=== PATIENT | male | born 1940 | race Caucasian/White ===

== ENCOUNTER 2020-05-26 22:19 | Emergency (ER) | payer MEDICARE, BC ==
[2020-05-26] MEDS ORDERED: Acetaminophen/oxyCODONE 325-5 MG Tab PO ONE (22:20)
[2020-05-26] MEDS ORDERED: Acetaminophen/oxyCODONE 325-5 MG Tab PO STA ×2 (22:26→23:01)
--- NOTE | 2020-05-26 22:36 | EDM.PDOC ---
ED HPI GENERAL MEDICAL PROBLEM - General Chief Complaint: Abdominal Pain Stated Complaint: PAIN Time Seen by Provider: 05/26/20 22:29 Source of Information: Reports: Patient, Old Records, Provider, RN History Limitations: Reports: No Limitations - History of Present Illness INITIAL COMMENTS - FREE TEXT/NARRATIVE: 79 yo male was recently released from a [facility] after having a biopsy of a pancreatic mass. He got oxycodone while in the hospital and had good relief. At the time of discharge he didn't have pain so he was not sent home with anything for pain. He called his primary this evening regarding his pain and was directed to come to the ER as there were no pharmacies open at this hour. Onset: Today, Gradual Onset Date: 05/26/20 Duration: Hour(s):, Constant Location: Reports: Abdomen Quality: Reports: Ache Severity: Moderate Improves with: Reports: Medication Worsens with: Reports: Other (meds wearing off) Context: Reports: Other (See HPI) Associated Symptoms: Reports: No Other Symptoms. Denies: Fever/Chills, Nausea/Vomiting Treatments PATIENT SAFETY SITTER: Reports: Other (see below) (none) abdominal Pain Score (Numeric/FACES): 8 - Related Data Allergies Allergy/AdvReac Type Severity Reaction Status Date / Time tramadol AdvReac Mild shakes Verified 05/26/20 22:32 ED ROS GENERAL - Review of Systems Review Of Systems: See Below Constitutional: Reports: No Symptoms HEENT: Reports: No Symptoms Respiratory: Reports: No Symptoms Cardiovascular: Reports: No Symptoms GI/Abdominal: Reports: Abdominal Pain. Denies: Black Stool, Bloody Stool, Constipation, Diarrhea, Distension, Hematemesis, Hematochezia, Melena, Nausea, Vomiting : Reports: No Symptoms Musculoskeletal: Reports: No Symptoms Skin: Reports: No Symptoms Neurological: Reports: No Symptoms Psychiatric: Reports: No Symptoms ED EXAM, GI/ABD - Physical Exam Exam: See Below Exam Limited By: No Limitations General Appearance: Alert, WD/WN, No Apparent Distress Eyes: Bilateral: Normal Appearance Ears: Normal External Exam, Normal Canal, Hearing Grossly Normal Nose: Normal Inspection, No Blood Throat/Mouth: Normal Inspection, Normal Lips, Normal Oropharynx, Normal Voice, No Airway Compromise Head: Atraumatic, Normocephalic Neck: Normal Inspection Respiratory/Chest: No Respiratory Distress, Lungs Clear, Normal Breath Sounds, No Accessory Muscle Use Cardiovascular: Regular Rate, Rhythm, No Edema GI/Abdominal Exam: Normal Bowel Sounds, Soft, Tender (epigastrium). No: Non- Tender, Distended, Guarding, Rigid, Rebound Back Exam: Normal Inspection. No: CVA Tenderness (R), CVA Tenderness (L) Extremities: Normal Inspection, Normal Range of Motion, Non-Tender, No Pedal Edema. No: Pedal Edema Neurological: Alert, Oriented, CN II-XII Intact, Normal Cognition, No Motor/Sensory Deficits Psychiatric: Normal Affect, Normal Mood Skin Exam: Warm, Dry, Intact, Normal Color, No Rash Course - Vital Signs Text/Narrative:: Percocet 1 po given for pain relief, Last Recorded V/S: Last Vital Signs Temp 36.8 C 05/26/20 22:20 Pulse 91 05/26/20 22:20 Resp 18 05/26/20 22:20 BP 176/78 H 05/26/20 22:20 Pulse Ox 99 05/26/20 22:20 - Orders/Labs/Meds Labs: Laboratory Tests 05/26/20 Range/Units 22:45 Lipase 474 H (73-393) U/L Meds: Medications Discontinued Medications Generic Name Dose Route Start Last Admin Trade Name Freq PRN Reason Stop Dose Admin Oxycodone/Acetaminophen 1 tab 05/26/20 22:26 05/26/20 22:34 Percocet 325-5 Mg PO 05/26/20 22:27 1 tab ONETIME STA Administration Oxycodone/Acetaminophen 1 tab 05/26/20 23:01 05/26/20 23:13 Percocet 325-5 Mg PO 05/26/20 23:02 1 tab ONETIME STA Administration - Re-Assessments/Exams Free Text/Narrative Re-Assessment/Exam: 05/26/20 23:02 Still experiencing epigastric pain, will repeat Percocet dose. Free Text/Narrative Re-Assessment/Exam: 05/26/20 23:50 After 2nd Percocet his pain is tolerable Departure - Departure Time of Disposition: 23:55 Disposition: Home, Self-Care 01 Condition: Fair Clinical Impression: Epigastric pain - Discharge Information *PRESCRIPTION DRUG MONITORING PROGRAM REVIEWED*: No *COPY OF PRESCRIPTION DRUG MONITORING REPORT IN PATIENT SUNITA: No Instructions: Abdominal Pain, Adult, [id number] Referrals: Ismael Snider MD [Primary Care Provider] - Forms: ED Department Discharge Additional Instructions: Take Percocet 1-2 every 4-6 hrs as needed for pain relief. Clear liquid diet only tonight. Call your doctor tomorrow about your situation. You were given Percocet 5/325 strength tonight. Your lipase level was 474. Sepsis Event Note (ED) - Focused Exam Vital Signs: Vital Signs Temp Pulse Resp BP Pulse Ox 05/26/20 22:20 36.8 C 91 18 176/78 H 99
== END 2020-05-26 23:20 | disposition home or self-care (01) ==
LOC: FB.ED 22:19
DX: R10.13 Epigastric pain (principal); Z88.5 Allergy status to narcotic agent
CPT/HCPCS: 36415; 83690; 99283; 99284; A9270

== ENCOUNTER 2022-02-26 07:54 | Day surgery (SDC) | payer MEDICARE, BC ==
[~2022-02-26 07:54] MED LIST: Lactated Ringers 1,000 ML IV SCH; Sodium Chloride 0.9% 10 ML Syringe FLUSH PRN
[2022-02-26] MEDS ORDERED: Propofol 200 MG/20 ML SDV IV ONE (07:55)
== END 2022-02-26 10:20 | disposition home or self-care (01) ==
LOC: FB.SDS 07:54
PROVIDERS: ATTEND Surgery
DX: Z12.11 Encounter for screening for malignant neoplasm of colon (principal); K57.30 Diverticulosis of large intestine without perforation or abscess without bleeding; J30.9 Allergic rhinitis, unspecified; N40.0 Benign prostatic hyperplasia without lower urinary tract symptoms; E11.9 Type 2 diabetes mellitus without complications; E78.5 Hyperlipidemia, unspecified; G47.30 Sleep apnea, unspecified; Z86.010 Personal history of colon polyps; Z80.0 Family history of malignant neoplasm of digestive organs; Z79.899 Other long term (current) drug therapy; Z79.84 Long term (current) use of oral hypoglycemic drugs; Z90.49 Acquired absence of other specified parts of digestive tract; Z98.890 Other specified postprocedural states; Z88.5 Allergy status to narcotic agent; Z96.652 Presence of left artificial knee joint; Z87.891 Personal history of nicotine dependence
CPT/HCPCS: 82947; G0105; J2704; J7120; 00812-QZ